=== PATIENT | male | born 1985 | race Caucasian/White ===

== ENCOUNTER → 2020-02-20 07:49 | Outpatient (REF) | payer MEDICAID, SELFPAY ==
--- NOTE | 2020-02-20 | NM_ITS ---
EXAMINATION: RADIONUCLIDE SOLID FOOD GASTRIC EMPTYING 4-HOUR STUDY CLINICAL INFORMATION: Early satiety. COMPARISON: No previous gastric emptying study is available for comparison. TECHNIQUE: A standard meal consisting of 4 oz of Egg Beaters brand equivalent tagged with 820 microcuries Tc-99m Sulfur Colloid, 8 oz water and 2 slices of toast with jelly was administered orally to the patient. Images were obtained using a dual head gamma camera in the anterior and posterior projections over of the stomach immediately post ingestion and at hourly intervals up to 4 hours post ingestion. The anterior and posterior counts at each time interval were averaged using the geometric mean and expressed as percentage of the immediate post ingestion counts. FINDINGS: There is good visualization of activity in the stomach immediately post ingestion. As the study progresses, there is good clearance of activity from the stomach and visualization of progressively increasing small bowel activity. At the end of the study there is mild abnormal retention of activity in the stomach at 4 hours. Retention in the stomach at each time interval was: 1 hour 83% (normal 37%-90%) 2 hours 60% (normal 30%-60%) 3 hours 23% 4 hours 18% (normal 0%-10%) NM/NM gastric emptying study IMPRESSION: Abnormal study. There is mild abnormal retention of solid food in the stomach at 4 hours.
== END ==
LOC: HO.NUCMED 07:49
PROVIDERS: PCP Internal Medicine; Visit Provider Internal Medicine Gastroenterology
DX: R68.81 Early satiety (principal)
CPT/HCPCS: 78264; A9541

== ENCOUNTER → 2020-03-13 11:12 | Outpatient (BNVA) | payer MEDICAID, SELFPAY | PROVIDERS: PCP Internal Medicine; Referring Provider Internal Medicine; Visit Provider Internal Medicine Gastroenterology | DX: Z76.89 Persons encountering health services in other specified circumstances (principal) ==

== ENCOUNTER → 2020-05-11 13:53 | Outpatient (BNVA) | payer MEDICAID, SELFPAY | PROVIDERS: PCP Internal Medicine; Visit Provider Internal Medicine Gastroenterology ==

== ENCOUNTER → 2020-06-14 08:35 | Outpatient (BNVA) | payer MEDICAID, SELFPAY | PROVIDERS: PCP Internal Medicine; Visit Provider Internal Medicine Gastroenterology ==

== ENCOUNTER → 2020-10-04 09:03 | Outpatient (BNVA) | payer MEDICAID, SELFPAY | PROVIDERS: PCP Internal Medicine; Visit Provider Internal Medicine Gastroenterology ==

== ENCOUNTER → 2021-01-31 14:51 | Outpatient (BNVA) | payer MEDICAID, SELFPAY | PROVIDERS: Visit Provider Internal Medicine Gastroenterology ==

== ENCOUNTER → 2022-01-03 07:30 | Outpatient (BNVA) | payer MEDICAID, SELFPAY | PROVIDERS: Visit Provider Internal Medicine Gastroenterology | DX: R19.7 Diarrhea, unspecified (principal); K64.9 Unspecified hemorrhoids; R14.0 Abdominal distension (gaseous); R63.4 Abnormal weight loss; K31.84 Gastroparesis; R11.2 Nausea with vomiting, unspecified | CPT/HCPCS: 99212 ==

== ENCOUNTER 2024-06-02 07:59 | Outpatient (AMB) | payer MEDICAID, SELFPAY ==
--- NOTE | 2024-06-02 08:00 | A.OFFVIS_ITS ---
Vital Signs 06/02/24 08:21 Height 5 ft 9 in Weight 217 lb BMI 32.0 BP 120/77 Blood Pressure Location Lt brachial Position Sitting Pulse 74 Intake Visit Reasons: Follow up gastroparesis Intake Note: Patient follow up for Gastroparesis. BILL was 12/2021. Patient cc: sharp abdominal pain in the morning, nauseas with vomit on and off, between soft and hard stool,and swallowing difficulty with solid food on and off. Patient said some of his family was dx with Diverticulitis. Touch Up Painter Hand Required: No Accompanied by: Self / Same As Patient Allergies No Known Allergies (No Known Allergies*) Allergy (Verified 06/02/24 08:01) Medication List - Last Reconciled 06/02/24 by Jayme Cabezas MD clonidine HCl 0.2 mg PO BEDTIME dicyclomine 20 mg PO TID gabapentin 800 mg PO TID methadone 15 mg PO DAILY metoclopramide HCl 10 mg PO TID 30 days mirtazapine 7.5 mg PO BEDTIME mirtazapine 15 mg PO BEDTIME 30 days omeprazole 20 mg PO BID 30 days ondansetron 4 mg PO Q8H PRN 30 days sertraline 100 mg PO DAILY HPI HPI Follow up gastroparesis: Details: GI CLINIC VISIT FOR THIS? 38-YEAR-OLD MALE FOR FOLLOW-UP OF LEFT LOWER QUADRANT PAIN. ? Multiple ED visits since 07/21/2019 with epigastric/left upper quadrant pain with nausea and vomiting. ? Patient reported being diagnosed with kidney stones and had stent placements 5 to 6 months ago ? Patient reported noticing some blood on toilet paper on wiping. Patient requested IV pain medicine for? IBS and left against medical advice ? Per pt had Abd CT on 07/20/19 at [facility] which was normal. ? CT scan from [facility], CT scan done yesterday at [facility] shows left-sided 2 mm calculus in the left ureter. TODAY'S VISIT: Patient follow up for Gastroparesis. BILL was 12/2021. Patient cc: sharp abdominal pain in the morning, nauseas with vomit on and off, between soft and hard stool, and swallowing difficulty with solid food on and off. Patient said some of his family was dx with Diverticulitis. Has not been taking any of the GI medications except Omeprazole. Wakes up 5 days a week to use the bathroom - does not have diarrhea but baby poop. Can have 3-4 BMs a day in the morning (2-3 am till 5 am) Has some gas and bloating and not as often Cut out soda and decreased intake of tea and coffee Sometimes has constipation (2-3 times a month) and gas and belching. Has crampy pain in his stomach and feels better. Nausea and vomiting has been subsiding. 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 Can have nausea and vomiting. Takes peptobismol and can have vomiting. Gets home from work at 10 pm - takes a bowl of cereal for dinner. Dinner at 6 -7 pm on his days off. Pukes after he eats steaks (does not have many teeth) Trying to introduce fish in his diet. Taking Methadone 44 mg daily and slowly decreasing by 1 mg every week. Feels symptoms are related to anxiety. Symptoms get better an hour after he takes the Gabapentin No BM during the day. Had COVID 6 weeks ago. Doing overall OK - had 1-2 episodes when he forgot to take his medications the night before. Noted nausea, vomiting, pain was more severe. Pain is bearable when he takes his medications Watches what he eats - avoids peppers, onions and mushrooms. Notes vomiting if he had onions the night before and vomitus contains onions. Scared to eat at night and takes cereal with 2% milk (tried almond and Lactaid milk and did not like it). Poops less when he eats more. Does not have breakfast - eats a small lunch Noted 4-5 episodes of diarrhea the day after he had a slice of pizza and chicken wings and forgot to take the medication. Has to have a Bm as soon as he wakes up usually on the soft side (like baby poop) - feels painful like a gas bubble. Denies past hx of heavy ETOH abuse. Yesterday I was feeling stomach pains, nausea, very intense cramping. Right now I am feeling okay. I think that I have a slow digestive system and I think it was cause I went to bed early and ate lasagna so when I woke up this morning it all came out. Had dinner at 6 pm and went to sleep at 6:30 pm. Some days he feels like he has a slow digestive system and some days it is fast Has had five episodes of nausea and vomiting over the past 3 days. has gained 30 lbs over the past 5-6 months. Has frequent BMs and denies diarrhea. Gets a sharp pain in the pelvic area and has less than 5 min to get to the bathroom. Has 2-3 BMs in the morning and sometimes late at night. Mirtazepine is doing wonders with me and I am feeling 70% better 5 days out of a week Not as much pucking. Can miss a dose if he forgets to take it and gets sick 1-2 episodes of abdominal cramps at 3-4 am and has to go to the bathroom and has a normal/soft BM (has diarrhea once a week). Can feel the poop and gas pushing through his bowel Has been eating and dieting better. Denies FH of IBD (maternal uncle had colon cancer at age 52 yrs). Getting sick every day for the past month. Has urgency to use the bathroom when he gets up and has 2-4 episodes of loose BMs. Usually no more BMs - sometimes has 1 more BM at bedtime. Can have vomiting after he stands up from the toilet, he ends up barely making it to the kitchen. Has vomiting at 4 or 5 am consisting of green bile and sometimes food. Only bile if vomiting is small and food comes up if he has excessive vomiting. Sometimes he is gassy and if able to burp, his symptoms improve. Episodes had decreased to 1-2 times a week. Past month has been worse and has been having symptoms daily. When stress and anxiety comes on - he feels it in the stomach. Has been taking Ondansetron at bedtime and thinks it helps. Has regained weight back to baseline. Smoking 2-3 cigars of marijuana a day and trying to quit. Bought? Peptiva (probiotics) and has not started taking it. Taking breakfast, lunch and snacks for dinner (snacks for?dinner) ?[facility] :?01/08/20 REVIEWED. NORMAL CBC WITH PLATELET COUNT OF 118, NORMAL CHEM PANEL, NORMAL LFTS AND LIPASE ? TOX SCREEN WAS POSITIVE FOR CANNABIS on 07/21/2019 and 09/23/2019. ? 07/21/19 STOOL OCCULT BLOOD WAS NEGATIVE ? 06/2017 HEPATITIS-C ANTIBODY WAS POSITIVE WITH HEPATITIS-C VIRAL LOAD OF LESS THAN 15, HEPATITIS-B SEROLOGIES CONSISTENT WITH PAST INFECTION VERSUS VACCINATION. ?IMAGING STUDIES: 02/2020? GASTRIC EMPTYING STUDY SHOWED: ? Retention in the stomach at each time interval was: 1 hour 83% (normal 37%-90%) 2 hours 60% (normal 30%-60%) 3 hours 23% 4 hours 18% (normal 0%-10%) IMPRESSION: Abnormal study. There is mild abnormal retention of solid food in the stomach at 4 hours. 09/07/[address] SCAN SHOWED: ? 1. No evidence of colonic injury, perforation or free air status post colonoscopy. ? 2. A suggestion of tiny gallstones which were not seen on recent ultrasound exam. ? 3. Bilateral renal calculi. There appears to be one tiny punctate stone which I believe may be within the left ureter which is not producing any obstruction. ? 07/21/2019 ABDOMINAL ULTRASOUND SHOWED: ? 1. Nonobstructive 5 mm stone lower pole left kidney. There is no hydronephrosis. ? 2. Diffuse fatty change of liver. ?ENDOSCOPIC STUDIES: 09/06/19 EGD AND COLONOSCOPY SHOWED: ? ESOPHAGUS: Small hiatal hernia ? STOMACH: Moderate diffuse gastric erythema with submucosal hemorrhages. Some ? retained fluid in the fundus - suctioned. Biopsies were obtained from the ? gastric body and antrum. Grade 2 flap ? valve on retroflexed examination of the cardia. ? DUODENUM: Normal ? Colonoscopy Findings: ? Two hyperplastic polyps removed ? Moderate diverticulosis seen in the sigmoid colon ? Moderate hemorrhoids on retroflexed exam. ? BIOPSIES: ? A. Small bowel, biopsies: Small bowel mucosa with no significant histopathology; no ? villous abnormality identified; no increase in intraepithelial lymphocytes. ? B. Stomach, antrum, biopsies: Gastric antral mucosa with mild chronic, inactive ? gastritis; negative for Helicobacter pylori; negative for intestinal ? metaplasia/dysplasia. ? C. Stomach, body, biopsies: Gastric oxyntic type mucosa with mild chronic, inactive ? gastritis; negative for Helicobacter pylori; negative for intestinal ? metaplasia/dysplasia. ? D. Terminal ileum, biopsies: Terminal ileum mucosa within normal limits; no active ? inflammation; no granulomas; negative for malignancy. ? E. Colon, random, biopsies: Colonic mucosa within normal limits; no evidence of ? microscopic colitis. ? F. Colon, sigmoid polyp, polypectomy: Hyperplastic polyp. ? G. Rectum, polyps, polypectomy: Fragments of hyperplastic polyps. [facility] Medical History Hepatitis C antibody test positive Nausea and vomiting Surgical History History of lithotripsy Hx of tonsillectomy Hx of endoscopy History of colonoscopy Family History Father Alive and well Mother No problems noted. Social History Household Members: Spouse and Children Alcohol intake: current Alcohol intake frequency: does not drink Substance Use Type: Marijuana Current occupational status: employed Current occupation: [employer]ER Physical Exam Vital Signs: Last Vital Signs Pulse 74 06/02/24 08:21 BP 120/77 06/02/24 08:21 BMI result Body Mass Index 32.0 Const General: no acute distress Nutritional Appearance: obese Orientation/consciousness: patient oriented x3 Limitations: no limitations HEENT Head: Yes normal to inspection Ears: hearing grossly normal bilaterally Mouth: Normal oral and palatal mucosa present Eyes Sclerae: sclerae normal Pupils: Equal, round and reactive pupils present Neck Neck: Yes normal visual inspection Chest Chest palpation & inspection: normal inspection of the chest Resp Effort & Inspection: normal respiratory effort Auscultation: clear to auscultation bilaterally Cardio Palpation: normal PMI Rate: regular rate Rhythm: regular rhythm Heart sounds: S1 normal heart sound present, S2 normal heart sound present and no murmurs GI Palpation (GI): Soft to palpation, nontender and No hepatosplenomegaly present Auscultation: normal bowel sounds Rectal Exam - Male: Yes deferred Skin General skin exam: no rashes or lesions noted Neuro General: patient oriented x3, gait normal and moves all extremities Cranial nerves: Yes Equal, round and reactive pupils present Psych Appearance: grossly normal Mental Status: mental status grossly normal Assessment & Plan Assessment & Plan (1) Nausea and vomiting: Code(s): R11.2 - Nausea with vomiting, unspecified Category: Medical (2) Gastroparesis: Code(s): K31.84 - Gastroparesis Category: Medical (3) Abdominal bloating: Code(s): R14.0 - Abdominal distension (gaseous) Category: Medical (4) Hemorrhoids: Code(s): K64.9 - Unspecified hemorrhoids Category: Medical (5) Diarrhea: Code(s): R19.7 - Diarrhea, unspecified Category: Medical (6) IBS (irritable bowel syndrome): Code(s): K58.9 - Irritable bowel syndrome, unspecified Category: Medical Plan 38 YM with Hyperlipidemia, Bipolar disorder, Opiod abuse, Hep C Ab positive, NEGATIVE viral load and a history of kidney stones (S/P ureteral stent placement) followed in GI for left-sided abdominal pain for the past 5 years associated with nausea vomiting and decreased appetite with weight loss. Patient admits to a change in bowel habits with diarrhea over the past 4 years and is concerned regarding possibility of IBD or IBS. His family history is positive for Crohn's disease in a maternal uncle. Lab evaluation was negative for celiac disease, normal CRP and sed rate. Upper endoscopy showed gastritis and gastric biopsies were negative for Helicobacter pylori. Small bowel biopsies were normal. Colonoscopy showed sigmoid diverticulosis and 2 small hyperplastic polyps were removed. Random colon biopsies were negative for IBD. A gastric emptying study confirmed gastroparesis? likely related to methadone use. Patient's symptoms are likely related to a combination of gastroparesis, cyclic vomiting syndrome and cannabis hyperemesis syndrome. Pt's mom told him he had lactose intolerance as a child. Patient was advised to continue metoclopramide 10 mg one to two times daily and Mirtazepine to 22.5 mg (one 15 mg tablet and 1 7.5 mg tablet) at bedtime for nausea and vomiting. He is planning to submit stool studies to rule out pancreatic insufficiency/IBD. He was advised to set a reminder on his phone so he does not skip his medications at bedtime 06/02/24 Has not been taking any of the GI medications except Omeprazole. Wakes up 5 days a week to use the bathroom - does not have diarrhea but baby poop. Can have 3-4 BMs a day in the morning (2-3 am till 5 am) Advised to continue taking metoclopramide, dicyclomine and omeprazole. ?FU appointment in 3 months Orders: Orders Vitamin B12 and Folate 06/02/24 K58.9 - Irritable bowel syndrome, unspecified Vitamin D 25-OH Total 06/02/24 K58.9 - Irritable bowel syndrome, unspecified Complete Blood Count Auto Diff 06/02/24 R19.7 - Diarrhea, unspecified, K58.9 - Irritable bowel syndrome, unspecified Comprehensive Met. Panel 06/02/24 R19.7 - Diarrhea, unspecified, K58.9 - Irritable bowel syndrome, unspecified C Reactive Protein 06/02/24 R19.7 - Diarrhea, unspecified, K58.9 - Irritable bowel syndrome, unspecified Ova and Parasite 06/02/24 R19.7 - Diarrhea, unspecified, K58.9 - Irritable bowel syndrome, unspecified Pancreatic Elastase-1 06/02/24 R19.7 - Diarrhea, unspecified, K58.9 - Irritable bowel syndrome, unspecified Calprotectin, Fecal 06/02/24 R19.7 - Diarrhea, unspecified, K58.9 - Irritable bowel syndrome, unspecified TSH reflex Free T4 06/02/24 K58.9 - Irritable bowel syndrome, unspecified Medications: Changed From dicyclomine 20 mg PO TID 120 tabs 3RF K58.9 - Irritable bowel syndrome, unspecified To dicyclomine 20 mg PO TID 180 tabs 3RF 60 days K58.9 - Irritable bowel syndrome, unspecified From metoclopramide HCl 10 mg PO TID 30 days 90 tabs 0RF K31.84 - Gastroparesis To metoclopramide HCl 10 mg PO TID 270 tabs 1RF 90 days K31.84 - Gastroparesis From omeprazole 20 mg PO BID 30 days 60 caps 3RF R11.2 - Nausea with vomiting, unspecified To omeprazole 20 mg PO BID 180 caps 1RF 90 days R11.2 - Nausea with vomiting, unspecified Refilled mirtazapine 7.5 mg PO BEDTIME 30 tabs 3RF metoclopramide HCl 10 mg PO TID 90 tabs 0RF 30 days K31.84 - Gastroparesis Coding Level of Care Code Est Pt Level 4 (08721) Diagnoses Nausea and vomiting R11.2 Gastroparesis K31.84 Abdominal bloating R14.0 Hemorrhoids K64.9 Diarrhea R19.7 IBS (irritable bowel syndrome) K58.9 Time Spent (min) 23
--- OUTSIDE RECORDS SUMMARY | 2024-06-02 08:01 | XMS_ITS | Clinical Summary ---
Author Organization [facility] Address [id number] [place] [id number] Care Team Providers Care Quality Nurse Name Role Phone Ladan Ragsdale MD Primary Care Provider [phone] Allergies No known active allergies Medications gabapentin (NEURONTIN) 600 mg tablet TAKE 1 TABLET BY MOUTH 2 TIMES DAILY. Active ALPRAZolam (XANAX) 2 mg tablet Take 2 mg by mouth 3 times daily. - Oral Active DEXTROAMPHETAMIN E-AMPHETAMINE ORAL Take 20 mg by mouth 3 times daily. - Oral Active Active Problems Problem Noted Date Diagnosed Date Hyperlipidemia 04/01/2024 Weight gain 04/01/2024 ADHD (attention deficit hyperactivity disorder) 04/01/2024 Anxiety 04/01/2024 Hepatitis C antibody test positive 04/01/2024 Back pain 04/01/2024 Immunizations Name Administration Dates Next Due PPD Test 05/31/2000,05/29/2000 Tdap Tetanus diptheria acell ular pertussis (Boostrix; Adacel) 7yo and older 01/12/2014 Surgical History Surgery Date Site/Laterality Comments TONSILLECTOMY PROCEDURE: HISTORICAL TONSILLECTOMY Medical History Medical History Date Comments Hyperlipidemia 07/13/2014 DX:Hyperlipidemi a Weight gain 07/13/2014 DX:Weight gain ADHD (attention deficit hype ractivity disorder) 07/13/2014 DX:ADHD (attention deficit hyperactivity disorder) Anxiety 07/13/2014 DX:Anxiety Hepatitis C antibody test positive 07/13/2014 DX:Hepatitis C antibody test positive Family History Medical History Relation Name Comments Other: healthy Father Other: healthy Mother Relation Name Status Comments Father Mother Social History Tobacco Use Types Packs/Day Years Used Date Smoking Tobacco: Never Alcohol Use Standard Drinks/Week Comments No 0 (1 standard drink = 0.6 oz pur e alcohol) Sex and Gender Information Value Date Recorded Sex Assigned at Not on file Legal Sex Male 4:47 PM EST Gender Identity Not on file Sexual Orientation Not on file Obstetrics History Plan of Treatment Health Maintenance Due Date Last Done Comments Hepatitis B Vaccines (1 of 3 - 19+ 3-dose series) 2004 COVID-19 Vaccine (2023-2 5 season) 2023 Influenza Vaccine (#1) 2023 DTaP,Tdap,and Td Vaccines (2 - Td or Tdap) 01/13/2024 01/12/2014 Cholesterol Screening (Lipid Panel) 02/05/2024 Depression Screening 02/05/2024 HIV Screening 02/05/2024 Social Influencers of Health Screening 02/05/2024 Hepatitis C Screening Completed 09/03/2001 HIB Vaccines Aged Out No longer eligi ble based on patient's age to complete this topic HPV Vaccines Aged Out No longer eligi ble based on patient's age to complete this topic Hepatitis A Vaccines Aged Out No long er eligible based on patient's age to complete this topic IPV Vaccines Aged Out No longer eligi ble based on patient's age to complete this topic MMR Vaccines Aged Out No longer eligi ble based on patient's age to complete this topic Meningococcal ACWY Vaccine Aged Out N o longer eligible based on patient's age to complete this topic Meningococcal B Vacine Aged Out No lo nger eligible based on patient's age to complete this topic Pneumococcal Vaccine: Pediat rics (0 to 5 Years) and At-Risk Patients (6 to 64 Years) Aged Out No longer eligi ble based on patient's age to complete this topic RSV Immunization Patients Un yola 20 months Aged Out No longer eligible b ased on patient's age to complete this topic Varicella Vaccines Aged Out No longer eligible based on patient's age to complete this topic Procedures Procedure Name Priority Date/Time Associated Diagnosis Comments HEPATITIS C SCREENING Routine 09/03/2001 from Last 3 Months or Most Recently Relevant to Health Maintenance Results * Hepatitis C Screening (09/03/2001) Hepatitis C Screening Abstracted us Historical Provider MD HEALTH MAINTENANCE Final Result from Last 3 Months or Most Recently Relevant to Health Maintenance Care Teams Quality Nurse Relationship Specialty Start Date End Date Ladan Ragsdale MD [address] [place] [address] PCP - General Internal Medicine 05/25/15
--- OUTSIDE RECORDS SUMMARY | 2024-06-02 08:01 | XMS_ITS | Clinical Summary ---
Author Organization [facility] [employer] Address [address] [place] [address] Care Team Providers Care Control Inspector Name Role Phone Unavailable Primary Care Provider Unavailabl e Social History Tobacco Use Types Packs/Day Years Used Date Smoking Tobacco: Never Assessed Sex and Gender Information Value Date Recorded Sex Assigned at Male 02/10/2022 10:30 AM EDT Legal Sex Male 10:30 AM EDT Gender Identity Choose not to disclose 10:30 AM EDT Sexual Orientation Choose not to disclose 2021 10:30 AM EDT Plan of Treatment Health Maintenance Due Date Last Done Comments Depression Screening 1985 HIV Screening 1985 Lipid Panel 1985 SDOH Screening 1985 Alcohol/Substance Use Screening 1997 Tobacco Screening 1997 Family Planning (PISQ) 2000 Hepatitis C Screening 11/27/2003 Hepatitis B Vaccines (1 of 3 - 19+ 3-dose series) 2004 COVID-19 Vaccine ( - 2023-2 5 season) 2023 09/11/2020, 08/21/2020 Influenza Vaccine (#1) 2023 DTaP/Tdap/Td Vaccines (3 - T d or Tdap) 11/05/2029 11/06/2019, 01/12/2014 Zoster Vaccines (1 of 2) 11/27/2035 RSV Patients and Patients Aged 60 years or older (1 - 1-dose 75+ series) 2060 HIB Vaccines Aged Out No longer eligi [...] patient's age to complete this topic Meningococcal Vaccine Aged Out No isa nasra eligible based on patient's age to complete this topic Pneumococcal Vaccine: Pediatrics (0 to 5 Years) and At-Risk Patients (6 to 49) Years) Aged Out No longer eligible b ased on patient's age to complete this topic RSV under 20 months Aged Out No longe r eligible based on patient's age to complete this topic Rotavirus Vaccines Aged Out No longer eligible based on patient's age to complete this topic Insurance [facility] C3
[2024-06-02 08:21] VITALS: BP 120/77; PULSE 74; BMI 32.0
== END 2024-06-02 08:50 | disposition home or self-care (01) ==
PROVIDERS: Visit Provider Internal Medicine Gastroenterology
DX: R11.2 Nausea with vomiting, unspecified (principal); K31.84 Gastroparesis; R14.0 Abdominal distension (gaseous); K64.9 Unspecified hemorrhoids; R19.7 Diarrhea, unspecified; K58.9 Irritable bowel syndrome, unspecified
CPT/HCPCS: 99499